=== PATIENT | female | born 1965 | race Caucasian/White ===

== ENCOUNTER 2024-06-17 06:21 | Day surgery (SDC) | payer BC, SELFPAY ==
[2024-06-17] VITALS (7 sets, daily range): BP systolic 107–124; BP diastolic 70–80; BMI 27.5
[2024-06-17] MEDS: TYLENOL 1000 MG PO (12:28)
[2024-06-17] MEDS: CELEBREX 200 MG PO (12:29)
[2024-06-17] MEDS: NORMOSOL-R/PLASMALYTE-A 1000 IV (12:29)
[2024-06-17] MEDS: EMEND 40 MG PO (14:11)
[2024-06-17] MEDS: TYLENOL 650 MG PO (18:41)
== END 2024-06-17 19:14 | disposition home or self-care (01) ==
LOC: SDS 06:21
PROVIDERS: ATTENDING PHYSICIAN Student in an Organized Health Care Education/Training Program
DX: S92.351A Displaced fracture of fifth metatarsal bone, right foot, initial encounter for closed fracture (principal); W00.0XXA Fall on same level due to ice and snow, initial encounter; Y93.9 Activity, unspecified; Y92.9 Unspecified place or not applicable; Z88.5 Allergy status to narcotic agent
CPT/HCPCS: 28485; 93005; C1713

== ENCOUNTER → 2024-09-11 12:55 | Outpatient (REF) | payer BC, SELFPAY | LOC: WDC 12:55 | PROVIDERS: ATTENDING PHYSICIAN Obstetrics & Gynecology | DX: Z12.39 Encounter for other screening for malignant neoplasm of breast (principal); Z80.3 Family history of malignant neoplasm of breast; N60.99 Unspecified benign mammary dysplasia of unspecified breast; Z12.31 Encounter for screening mammogram for malignant neoplasm of breast; Z87.81 Personal history of (healed) traumatic fracture; Z78.0 Asymptomatic menopausal state | CPT/HCPCS: 77063; 77067; 77080 ==